=== PATIENT | female | born 1990 | race African-American/Black ===

== ENCOUNTER 2018-05-10 03:58 | Emergency (ER) | payer OTHER ==
[~2018-05-10] VITALS: Ht 152.4 cm; Wt 59.0 kg
--- NOTE | 2018-05-10 04:15 | NUR ---
BIBSELF C/O SUDDEN ONSET CHEST PAIN AT 0300, NON RADIATING, CRUSHING LIKE. DENIES N/V, DENIES SOB. SKIN WNL. VSS. PT NOTED TO BE ANXIOUS AND CRYING. NO S/S OF ACUTE DISTRESS NOTED. RESP EVEN AND UNLABORED. PT PLACED ON [employer] AND POX. PT SAFETY AND COMFORT MEASURES IN PLACE. EMT BEDSIDE FOR EKG. MD BEDSIDE FOR EVAL.
[2018-05-10] MEDS ORDERED: MAG HYDROX/AL HYDROX/SIMETH 30 ML UDC PO ONE (04:30)
[2018-05-10] MEDS ORDERED: FAMOTIDINE (20 MG) 20 MG TABLET PO ONE (04:30)
[2018-05-10] MEDS ORDERED: LIDOCAINE VISCOUS 2% UD 15 ML UDC MM ONE (04:30)
[2018-05-10 04:44] LABS: BASOPHILS # (AUTO) 0.1 /CMM (0.0-0.2); BASOPHILS % (AUTO) 0.8 % (0.0-2.0); HEMATOCRIT 44 % (33-45); LYMPHOCYTES % (AUTO) 41.3 % (20.0-44.0); MEAN CORPUSCULAR HGB CONC 34 g/dl (31.0-36.0); MEAN CORPUSCULAR VOLUME 98 fL (82-100); MONOCYTES # (AUTO) 0.5 /CMM (0.1-1.30); NEUTROPHILS # (AUTO) 4.8 /CMM (1.8-8.9); NEUTROPHILS % (AUTO) 49.9 % (43.0-81.0); PLATELET COUNT (AUTO) 328 /CMM (150-450); RDW COEFFICIENT OF VARIATION 12.8 (11.5-15.0); RED BLOOD CELL COUNT(AUTO) 4.51 MIL/uL (4.0-5.2); WHITE BLOOD COUNT (AUTO) 9.6 K/uL (4.3-11.0)
[2018-05-10 04:57] LABS: CALCIUM, SERUM 8.6 mg/dL (8.5-10.1); CARBON DIOXIDE 28 mmol/L (21-32); CHLORIDE 104 mmol/L (98-107); CREATININE 0.7 mg/dL (0.6-1.3); GLUCOSE 104 mg/dL (74-106); POTASSIUM 3.3 mmol/L (3.5-5.1); SODIUM SERUM 140 mmol/L (136-145); UREA NITROGEN, BLOOD 9 mg/dL (7-18)
[2018-05-10 05:02] LABS: ALANINE AMINOTRANSFERASE 20 U/L (12-78); ALBUMIN 3.9 g/dL (3.4-5.0); ALKALINE PHOSPHATASE 69 U/L (46-116); ASPARTATE AMINOTRANSFERASE 17 U/L (15-37); BILIRUBIN,TOTAL 0.1 mg/dL (0.2-1.0); TOTAL PROTEIN, SERUM 7.5 g/dL (6.4-8.2)
[2018-05-10 05:04] LABS: TROPONIN I < 0.017 ng/mL (0.00-0.056)
[2018-05-10] MEDS ORDERED: FAMOTIDINE (20 MG) 20 MG TABLET ONE (05:05)
[2018-05-10] MEDS ORDERED: MAG HYDROX/AL HYDROX/SIMETH 30 ML UDC ONE (05:05)
[2018-05-10] MEDS ORDERED: LIDOCAINE VISCOUS 2% UD 15 ML UDC ONE (05:05)
[2018-05-10] MEDS ORDERED: KETOROLAC TROMETHAMINE INJ 30 MG/ML VIAL IV ONE (05:30)
--- NOTE | 2018-05-10 05:50 | NUR ---
PT REFUSED MEDICATION. MADE AWARE
[2018-05-10 05:54] VITALS: BP 128/74
== END 2018-05-10 05:55 | disposition home or self-care (01) ==
LOC: ER 04:03
DX: K21.9 Gastro-esophageal reflux disease without esophagitis (principal)
CPT/HCPCS: 36415; 71045; 80048; 80076; 84484; 84703; 85025; 93005; 99285; A4606; Z7610

== ENCOUNTER 2018-11-06 09:44 | Emergency (ER) | payer OTHER ==
[~2018-11-06] VITALS: Ht 152.4 cm; Wt 56.7 kg
--- NOTE | 2018-11-06 09:50 | NUR ---
BIB SELF W C/O Cough/congestion "started couple days ago worse now pain w/cough". TO ER BED 10, HOOKED TO MONITOR, AWAITING MD DAVENPORT
[2018-11-06] MEDS ORDERED: IPRATROPIUM NEB FS 0.5 MG/2.5 ML AMPUL.NEB NEB ONE (10:00)
[2018-11-06] MEDS ORDERED: ALBUTEROL FS 2.5 MG/3 ML VIAL.NEB NEB ONE (10:00)
[2018-11-06] MEDS ORDERED: ALBUTEROL FS 2.5 MG/3 ML VIAL.NEB ONE (10:07)
[2018-11-06] MEDS ORDERED: IPRATROPIUM NEB FS 0.5 MG/2.5 ML AMPUL.NEB ONE (10:07)
--- NOTE | 2018-11-06 10:28 | NUR ---
WOOL [employer]OWER AT BEDSIDE. PT SIGNED WAIVER FOR URINE TEST BEFORE PROCEDURE. LMP 10/31/18
[2018-11-06] MEDS ORDERED: predniSONE 20 MG TABLET PO ONE (11:00)
[2018-11-06] MEDS ORDERED: AZITHROMYCIN 250 MG TABLET PO ONE (11:00)
[2018-11-06] MEDS ORDERED: AZITHROMYCIN 250 MG TABLET ONE (11:01)
[2018-11-06] MEDS ORDERED: predniSONE 20 MG TABLET ONE (11:02)
--- NOTE | 2018-11-06 11:35 | NUR ---
Patient discharged to home in stable condition. Written and verbal after care instructions given. Patient verbalizes understanding of instruction.
[2018-11-06 11:36] VITALS: BP 135/99
== END 2018-11-06 11:37 | disposition home or self-care (01) ==
LOC: ER 09:58
DX: J20.9 Acute bronchitis, unspecified (principal); F17.200 Nicotine dependence, unspecified, uncomplicated
CPT/HCPCS: 71045; 94640 ×2; 99284; 99406; A4606; J7512; Z7610

== ENCOUNTER 2019-07-18 04:15 | Emergency (ER) | payer OTHER ==
[~2019-07-18] VITALS: Ht 152.4 cm; Wt 56.7 kg
[2019-07-18 04:20] VITALS: BP 103/91
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
--- NOTE | 2019-07-18 04:42 | NUR ---
[employer] AT BEDSIDE
--- NOTE | 2019-07-18 05:35 | NUR ---
report completed by [employer]. Patient discharged to home in stable condition. Rx and Written and verbal after care instructions given. Patient verbalized understanding of instruction.
== END 2019-07-18 05:36 | disposition home or self-care (01) ==
LOC: ER 04:20
DX: M54.2 Cervicalgia (principal); F17.200 Nicotine dependence, unspecified, uncomplicated; T71.9XXA Asphyxiation due to unspecified cause, initial encounter; Y93.89 Activity, other specified; Y92.89 Other specified places as the place of occurrence of the external cause; Y99.8 Other external cause status